=== PATIENT | female | born 1980 | race Caucasian/White ===

== ENCOUNTER 2017-09-22 21:00 | Emergency (ER) | payer BC ==
[~2017-09-22] VITALS: Ht 160 cm; Wt 104.9 kg
[2017-09-22 21:00] VITALS: TEMP 36.6; O2SAT 100; Ht 160 cm; Wt 104.9 kg
[2017-09-22] MEDS ORDERED: SODIUM CHLORIDE 0.9% 1000ML 500 ML IV STA (21:14)
[2017-09-22] MEDS ORDERED: IBUPROFEN 600 MG TAB PO STA (21:14)
[2017-09-22] MEDS ORDERED: ONDANSETRON INJ 2 MG/ML 2 ML VIAL IV STA (21:14)
[2017-09-22 21:28] LABS: HEMOGLOBIN 13.5 g/dL (12.0-16.0); MEAN CELL VOLUME 83.5 fL (80-100); MEAN CORPUSCULAR HEMOGLOBIN 28.2 pg (25-34); MEAN CORPUSCULAR HGB CONC 33.8 g/dl (32-36); MEAN PLATELET VOLUME 9.8 fL (7.4-10.4); PLATELET COUNT 368 K/uL (130-400); RED CELL DISTRIBUTION WIDTH CV 13.3 % (11.5-14.5); RED CELL DISTRIBUTION WIDTH SD 40.4 fL (36.4-46.3); WHITE BLOOD COUNT 9.22 K/uL (4.8-10.8)
[2017-09-22 21:39] LABS: ALBUMIN 3.5 gm/dl (3.4-5.0); CALCIUM 8.7 mg/dl (8.5-10.1); CREATININE 0.87 mg/dl (0.60-1.20); POTASSIUM 3.5 mmol/L (3.5-5.1); TOTAL PROTEIN 7.3 gm/dl (6.4-8.2)
--- NOTE | 2017-09-22 22:07 | DIAGNOSTIC IMAGING REPORT ---
CHEST ONE VIEW PORTABLE HISTORY: Atypical CHEST PAIN COMPARISON: None. FINDINGS: The lungs are clear. Cardiac silhouette is normal in size. No pleural effusions. No pneumothorax. IMPRESSION: No acute process. Electronically signed by: Porter Cyr M.D. 09/22/2017 10:06 PM Dictated Date/Time: 09/22/2017 10:02 PM
[2017-09-22] MEDS ORDERED: ACET-1693 PO (22:10)
--- NOTE | 2017-09-22 22:52 | EMERGENCY ROOM VISIT NOTE ---
History Report prepared by Nathan: Janet Ruggiero Under the Supervision of: Dr. Arias Fitzgerald M.D. First contact with patient: 21:04 Stated Complaint: CHEST PAIN, HTN History of Present Illness The patient is a 37 year old female who presents to the Emergency Room with complaints of intermittent chest pain starting yesterday. The patient states that she was at work when a coworker noticed she looked pale and short of breath. She states that she asked her if she was okay. The patient states that at this time she told the nurse about her chest pain that she had for 2 hours. She states that it was in the center of her chest. She notes that it felt similar to heart burn, but was not the same. She currently rates her pain as a 6 /10 in severity. She notes that it is worse with movement. The patient complains of a knot in the back of her right shoulder, numbness down her right arm, chills, dizziness, nausea and diarrhea. The patient states that she thought the knot in her shoulder was from pulling something, but it didn't go away after taking 650 mg of Tylenol. The patient denies fever, cough, stuffy nose, sore throat, recent fall, recent injury, recent long trips, a history of lung disease, a cardiac history, and ever having an issue like this before. Source of History: patient Onset: yesterday Position: chest (center) Symptom Intensity: 6/10 Quality: other (similar to heart burn, but not) Timing: intermittent Modifying Factors (Worsening): movement Associated Symptoms: + chills, + SOB, + nausea, + back pain, + diarrhea, + numbness, No fevers, No sorethroat, No cough Note: The patient complains of being pale and dizziness. The patient denies a stuffy nose. Review of Systems See HPI for pertinent positives & negatives. A total of 10 systems reviewed and were otherwise negative. Past Medical & Surgical Medical Problems: (1) No Known Active Medical Problems No known medical problems. Family History FH: HTN (hypertension) FHx: cholecystectomy Social History Marital Status: Housing Status: lives with significant other Occupation Status: employed Current/Historical Medications Miscellaneous Medications Acetaminophen Tab (Tylenol), 325 MG PO Allergies Coded Allergies: No Known Allergies (Unverified , 09/22/17) Physical Exam Vital Signs Date Time Temp Pulse Resp B/P (MAP) Pulse Ox O2 Delivery O2 Flow Rate FiO2 09/22/17 23:49 65 18 119/71 99 Room Air 09/22/17 22:30 70 18 119/89 96 Room Air 09/22/17 21:11 81 09/22/17 21:00 100 Room Air 09/22/17 21:00 100 Room Air 09/22/17 21:00 36.6 85 18 140/96 100 Room Air Physical Exam GENERAL: Patient is in no acute distress. HEENT: No acute trauma, normocephalic atraumatic, mucous membranes moist, no nasal congestion, no scleral icterus. NECK: No stridor, no adenopathy, no meningismus, trachea is midline. LUNGS: Clear to auscultation bilaterally, no wheeze, no rhonchi, breath sounds equal. HEART: Without murmurs gallops or rubs, regular rate and rhythm. CHEST: Tender over the midsternal chest wall. BACK: Tender to the right rhomboid musculature just medial to the scapula. ABDOMEN: Soft, nontender, bowel sounds positive, no hernias, no peritonitis. EXTREMITIES: No cyanosis or edema, full range of motion of all the joints without pain or difficulty, no signs for acute trauma. NEUROLOGIC: Oriented x 3, no acute motor or sensory deficits, no focal weakness. SKIN: No rash, no jaundice, no diaphoresis. Medical Decision & Procedures ER Provider Diagnostic Interpretation: Radiology results as stated below per my review and radiologist interpretation: CHEST ONE VIEW PORTABLE HISTORY: Atypical CHEST PAIN COMPARISON: None. FINDINGS: The lungs are clear. Cardiac silhouette is normal in size. No pleural effusions. No pneumothorax. IMPRESSION: No acute process. Electronically signed by: Porter Cyr M.D. 09/22/2017 10:06 PM Dictated Date/Time: 09/22/2017 10:02 PM Laboratory Results 09/22/17 21:10 09/22/17 21:10 Test 09/22/17 21:10 09/22/17 21:20 09/22/17 23:22 Red Blood Count 4.79 M/uL (4.2-5.4) Mean Corpuscular Volume 83.5 fL (80-100) Mean Corpuscular Hemoglobin 28.2 pg (25-34) Mean Corpuscular Hemoglobin Concent 33.8 g/dl (32-36) RDW Standard Deviation 40.4 fL (36.4-46.3) RDW Coefficient of Variation 13.3 % (11.5-14.5) Mean Platelet Volume 9.8 fL (7.4-10.4) Anion Gap 7.0 mmol/L (3-11) Est Creatinine Clear Calc Drug Dose 102.6 ml/min Estimated GFR () 98.6 Estimated GFR (Non- 85.1 BUN/Creatinine Ratio 11.4 (10-20) Calcium Level 8.7 mg/dl (8.5-10.1) Total Bilirubin 0.3 mg/dl (0.2-1) Aspartate Amino Transf (AST/SGOT) 18 U/L (15-37) Alanine Aminotransferase (ALT/SGPT) 29 U/L (12-78) Alkaline Phosphatase 82 U/L (45-117) Total Protein 7.3 gm/dl (6.4-8.2) Albumin 3.5 gm/dl (3.4-5.0) Globulin 3.8 gm/dl (2.5-4.0) Albumin/Globulin Ratio 0.9 (0.9-2) Lipase 123 U/L (73-393) Bedside D-Dimer 307 ng/mlFEU (0-450) Bedside Troponin I < 0.030 ng/ml (0-0.045) Laboratory results reviewed by me. Medications Administered Medications (Trade) Dose Ordered Sig/Zuleika Route Start Time Stop Time Status Last Admin Dose Admin Ibuprofen (Motrin Tab) 600 mg NOW STAT PO 09/22/17 21:14 09/22/17 21:16 DC 09/22/17 21:25 600 MG Sodium Chloride 500 ml @ 999 mls/hr Q31M STAT IV 09/22/17 21:14 09/22/17 21:44 DC 09/22/17 21:25 999 MLS/HR Ondansetron HCl (Zofran Inj) 4 mg NOW STAT IV 09/22/17 21:14 18 21:16 DC 09/22/17 21:25 4 MG ECG Per My Interpretation Indication: chest pain Rate (beats per minute): 79 Rhythm: normal sinus Findings: no ectopy, other (no ST elevations, no PVCs) ED Course 2105: The patient was evaluated in room A3. A complete history and physical exam was performed. 4: Ordered Zofran Inj 4 mg IV, NSS 500 ml @ 999 mls/hr IV, Motrin Tab 600 mg PO. 2222: I reevaluated the patient and updated her on her test results this far. She is feeling much better. In one hour her POC troponin will be repeated and if fine, she will be able to go home. 2345: Reevaluated the patient. Discussed results and discharge instructions: She verbalized understanding and agreement. The patient is ready for discharge. Medical Decision Differential diagnoses include viral illness, musculoskeletal pain, anxiety, NE , PE, aortic dissection, pneumonia, bronchitis. There is no leukocytosis or worrisome anemia. No significant electrolyte abnormality, kidney failure or hepatitis. EKG shows a normal sinus rhythm, no acute ischemia. Cardiac enzyme testing 2 is not consistent with acute cardiac injury. Chest film does not show mediastinal widening, pneumonia or pneumothorax. D-dimer testing was negative. With a negative d-dimer and my low suspicion for PE, I will stop the workup for this diagnosis. Patient was given oral Motrin, IV Zofran and IV saline, she is resting comfortably. She feels improved. She is not in distress. The patient's chest and shoulder pain seems musculoskeletal, it is reproducible on exam. Her cardiac and pulmonary workups are benign. The patient was reassured. She is being discharged home. Medication Reconcilliation Current Medication List: was personally reviewed by me Blood Pressure Screening Patient's blood pressure: Elevated blood pressure Blood pressure disposition: Elevated BP felt to be situational Impression Primary Impression: Precordial chest pain Additional Impressions: Pain of right scapula SOB (shortness of breath) Scribe Attestation The scribe's documentation has been prepared under my direction and personally reviewed by me in its entirety. I confirm that the note above accurately reflects all work, treatment, procedures, and medical decision making performed by me. Departure Information Dispostion Home / Self-Care Referrals No Doctor, Assigned (PCP) Forms Call Back Authorization, HOME CARE DOCUMENTATION FORM, IMPORTANT VISIT INFORMATION Additional Instructions motrin or tylenol for pain heat to the chest may help heat to the shoulder may help rest stay well hydrated return for worsening symptoms heart and lung testing today was all ok Problem Qualifiers
[2017-09-22 23:49] VITALS: BP 119/71; PULSE 65; O2SAT 99
== END 2017-09-22 23:50 | disposition home or self-care (01) ==
LOC: C.EDA 21:02
DX: R07.2 Precordial pain (principal); M25.511 Pain in right shoulder; R06.02 Shortness of breath; R42 Dizziness and giddiness; R19.7 Diarrhea, unspecified; Z82.49 Family history of ischemic heart disease and other diseases of the circulatory system; Z84.89 Family history of other specified conditions